=== PATIENT | female | born 1980 | race Native Hawaiian/Other Pacific Islander ===

== ENCOUNTER 2016-05-12 14:38 | Emergency (ER) | payer BC ==
[2016-05-12] MEDS ORDERED: ALBUTEROL NEB 2.5 MG/3 ML INH STA (15:03)
[2016-05-12] MEDS ORDERED: ALBUTEROL NEB 2.5 MG/3 ML INH ONE (15:17)
== END 2016-05-12 16:14 | disposition home or self-care (01) ==
DX: J18.9 Pneumonia, unspecified organism (principal)
CPT/HCPCS: 71020; 94640; 99283; 99284; J7613

== ENCOUNTER 2017-01-31 11:51 | Outpatient (CLI) | payer BC ==
[2017-01-31 12:20] LABS: BASOPHILS # (AUTO) 0.1 10^3/uL (0.0-0.1); BASOPHILS % (AUTO) 0.9 %; EOSINOPHILS # (AUTO) 0.2 10^3/uL (0.0-0.7); EOSINOPHILS % (AUTO) 2.7 %; HCT - HEMATOCRIT 35.2 % (37.0-47.0); HGB - HEMOGLOBIN 11.7 g/dL (12.0-16.0); LYMPHOCYTES # (AUTO) 2.2 10^3/uL (1.5-3.5); LYMPHOCYTES % (AUTO) 31.8 %; MEAN CORPUSCULAR HEMOGLOBIN 26.7 pg (27.0-31.0); MEAN CORPUSCULAR HGB CONC 33.1 g/dL (32.0-36.0); MEAN CORPUSCULAR VOLUME 80.8 fL (81.0-99.0); MEAN PLATELET VOLUME 7.9 fL (7.9-10.8); MONOCYTES # (AUTO) 0.3 10^3/uL (0.0-1.0); MONOCYTES % (AUTO) 4.2 %; NEUTROPHILS # (AUTO) 4.1 10^3/uL (1.5-6.6); NEUTROPHILS % (AUTO) 60.4 %; NUCLEATED RED BLOOD CELLS AUTO 0.1 /100WBC; RED BLOOD COUNT 4.36 10^6/uL (4.20-5.40); RED CELL DISTRIBUTION WIDTH 15.5 % (12.0-15.0); UNCORRECTED WHITE BLOOD COUNT 6.8 x10^3/uL; WHITE BLOOD COUNT 6.8 x10^3/uL (4.8-10.8)
[2017-01-31 12:38] LABS: BILIRUBIN,TOTAL 0.5 mg/dL (0.2-1.0); CALCIUM 8.5 mg/dL (8.5-10.3); POTASSIUM 3.8 mmol/L (3.5-5.0); TOTAL PROTEIN 7.3 g/dL (6.7-8.2)
== END 2017-01-31 11:52 | disposition home or self-care (01) ==
LOC: LAB 11:51
PROVIDERS: ATTEND Family Medicine
DX: R05 Cough (principal)
CPT/HCPCS: 36415; 80053; 83880; 84484; 85025

== ENCOUNTER 2017-07-14 11:22 | Outpatient (CLI) | payer BC | END 2017-07-14 11:23 | disposition home or self-care (01) | LOC: DI 11:22 | PROVIDERS: ATTEND Family Medicine | DX: Z86.018 Personal history of other benign neoplasm (principal); I51.7 Cardiomegaly | CPT/HCPCS: 93306 ==

== ENCOUNTER → 2018-09-16 | Outpatient (CLI) | payer BC, MEDICAID, OTHER | LOC: LAB.R 08:00 | PROVIDERS: ATTEND Physician Assistant Medical | DX: N39.0 Urinary tract infection, site not specified (principal) | CPT/HCPCS: 87086 ==

== ENCOUNTER 2022-05-26 02:30 | Emergency (ER) | payer OTHER ==
[2022-05-26] MEDS ORDERED: IPRATROPIUM/ALBUTEROL 3 ML NEB INH STA (03:07)
[2022-05-26] MEDS ORDERED: predniSONE 20 MG TABLET PO STA (03:07)
--- NOTE | 2022-05-26 03:58 | ED Physician Documentation ---
PD HPI DYSPNEA - Stated complaint Stated Complaint: COUGH, SHORT OF AIR - Chief complaint Chief Complaint: Resp - History obtained from History obtained from: Patient - Additional information Additional information: The patient comes to the emergency department chief complaint of cough for 4 months, now with chest tightness over the last couple of days. She states that everyone in her household has been coughing and that she does not know if she is sick or something else is wrong with her. 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 She states she was told that they got all of the tumor and it should not come back. No underlying lung disease. She has not had any fevers or chills. No shortness of breath. She states she did have some transient edema in her lower extremities a couple of days ago but it went away on its own and has not come back. 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 Cardiovascular: Other - Present Medications Home Medications: Ambulatory Orders Medication Instructions Recorded Confirmed Albuterol Sulfate [Proair Hfa 2 puffs IH QID #1 hfa.aer.ad 05/12/16 Inhaler] Azithromycin [Zithromax] 250 mg PO DAILY #6 tablet 05/12/16 dexAMETHasone [Decadron] 4 mg PO DAILY #5 tablet 05/12/16 guaiFENesin/CODEINE [Robitussin AC] 10 ml PO Q6H PRN #240 ml 05/12/16 Albuterol Sulf [Ventolin Hfa 1 - 2 puffs INH Q4HR PRN #1 each 05/26/22 Inhaler] Benzonatate [Tessalon] 100 mg PO TID PRN #30 cap 05/26/22 predniSONE [Deltasone] 60 mg PO DAILY 5 Days #15 tablet 05/26/22 - Allergies Allergies/Adverse Reactions: Allergies Allergy/AdvReac Type Severity Reaction Status Date / Time No Known Drug Allergies Allergy Verified 05/12/16 14:45 - Social History Does the pt smoke?: No Smoking Status: Never smoker Does the pt drink ETOH?: No Does the pt have substance abuse?: No - Immunizations Immunizations are current?: No Immunizations: TDAP >10years/unknown - POLST Patient has POLST: No PD ED PE NORMAL - Vitals Vital signs reviewed: Yes - General General: Alert and oriented X 3, No acute distress, Well developed/nourished - HEENT HEENT: Atraumatic, PERRL, EOMI, Moist mucous membranes - Neck Neck: Supple, no meningeal sign - Cardiac Cardiac: RRR, No murmur, Strong equal pulses - Respiratory Respiratory: No respiratory distress, Other (Mild expiratory wheezes bilaterally. No prolonged expiratory phase.) - Abdomen Abdomen: Soft, Non tender, Non distended - Derm Derm: Normal color, Warm and dry, No rash - Extremities Extremities: No deformity, No edema - Neuro Neuro: Alert and oriented X 3 - Psych Psych: Normal mood, Normal affect Results - Vitals Vitals: Vital Signs - 24 hr 05/26/22 05/26/22 05/26/22 02:45 03:00 03:25 Temperature 37.3 C Heart Rate 85 82 76 Respiratory 22 19 20 Rate Blood Pressure 156/77 H 155/95 H O2 Saturation 97 98 05/26/22 04:11 Temperature 37 C Heart Rate 82 Respiratory 12 Rate Blood Pressure 155/98 H O2 Saturation 100 Oxygen O2 Source Room air - Labs Labs: Laboratory Tests 05/26/22 03:16 B-Natriuretic Peptide 75 - Rads (name of study) Chest x-ray Radiology: Final report received, See rad report (Negative) PD Medical Decision Making - ED course Complexity details: reviewed results, re-evaluated patient, considered differential, d/w patient ED course: The patient was treated with prednisone 60 mg and A DuoNeb. Her chest x-ray was unremarkable, other than for borderline cardiomegaly, and her BNP was normal at 75. I discussed with the patient that I do not find any evidence of a serious condition at this time. The patient then mentioned that she had forgotten to tell me that her cousin tested positive for COVID last weekend and they have been hanging out together. The patient states that her cousin took a home COVID test and that now that everything was done, she did not want to wait for another test to be done here. She stated she would take the test at home. I felt this was reasonable since the patient was very stable and good oxygen saturation and was feeling better after the nebulizer treatment and steroids. I did send the patient prescriptions for inhaler, steroids, and Tessalon to the pharmacy of her choice. We have discussed the usual indications for return. Departure - Departure Disposition: 01 Home, Self Care Clinical Impression: Viral syndrome, Chronic cough, Bronchospasm Condition: Stable Instructions: ED Reactive Airway Disease, ED Viral Syndrome Prescriptions: Albuterol Sulf [Ventolin Hfa Inhaler] 1 - 2 puffs INH Q4HR PRN #1 each PRN Reason: Shortness Of Air/Wheezing predniSONE [Deltasone] 60 mg PO DAILY 5 Days #15 tablet Benzonatate [Tessalon] 100 mg PO TID PRN #30 cap PRN Reason: Cough Comments: Your chest x-ray and blood work look good. There is no evidence of a serious or emergent condition going on at this time. It is not clear why you have had the cough for 4 months, and you will need to work with your doctor on getting referred to either a junior software developer or an supervisor fitting to try to sort this out. On top of what ever else is going on chronically, you have most likely been exposed on and off to the many viruses that have gone around over the fall and winter and caused repeated illness and many people. It is possible that you have COVID now, and you should definitely go through with your plans to take the home test when you get home. Since the breathing treatment and steroids seem to bring you some relief of your symptoms, and a prescription for an inhaler and stero ids, plus a cough medicine, has been electronically transmitted to the [facility] pharmacy in [place]. Please pick the prescriptions up in the morning. There is no indication for an antibiotic at this time. Please call your doctor's office today to make the next available appointment to follow-up.
[2022-05-26 04:11] VITALS: BP 155/98
--- NOTE | 2022-05-26 08:02 | XRAY Report ---
PROCEDURE: Chest 1 View X-Ray INDICATIONS: cough/sob TECHNIQUE: One view of the chest was acquired. COMPARISON: 01/31/2017. FINDINGS: Surgical changes and devices: None. Lungs and pleura: No pleural effusions or pneumothorax. Lungs are clear. Mediastinum: Mediastinal contours appear normal. Heart size is at the borderline limits of normal. Bones and chest wall: No suspicious bony lesions. Overlying soft tissues appear unremarkable. IMPRESSION: Borderline cardiomegaly. No acute cardiopulmonary abnormalities. No focal airspace disease. No significant discrepancy with initial interpretation by overnight radiologist. Reviewed by: Zane Khan MD on 05/26/2022 8:01 AM PST Approved by: Zane Khan MD on 05/26/2022 8:01 AM PST Station ID: [id number]
== END 2022-05-26 04:11 | disposition home or self-care (01) ==
LOC: ED 02:30
DX: B34.9 Viral infection, unspecified (principal); J98.01 Acute bronchospasm
CPT/HCPCS: 36415; 71045; 83880; 94640; 99283; 99284; J7512